=== PATIENT | male | born 1965 | race Caucasian/White ===

== ENCOUNTER 2023-11-08 14:25 | Emergency (ER) | payer MEDICARE, MEDICAID, SELFPAY ==
[2023-11-08 14:28] VITALS: BP 152/90; PULSE 98; O2SAT 98
[2023-11-08 14:31] VITALS: BP 139/83; PULSE 100; RESP 19; TEMP 36.9; O2SAT 98; BMI 25.0
--- NOTE | 2023-11-08 14:35 | ED.GENADULT ---
HPI - General Adult General Chief complaint: Upper Respiratory Symptoms Stated complaint: ?COVID,STANLEY,FEVER,BODYACHES PER EMS (LANG:TONGAN) Time Seen by Provider: 11/08/23 15:29 Source: patient, family (patient's sister), EMS and occupational health coordinator (patient requested to have his sister interpret for him. Patient was offered an [facility] [place] occupational health coordinator and declined.) Mode of arrival: EMS Limitations: language barrier (Patient requested to have his sister interpret for him. Patient was offered an [facility] [place] occupational health coordinator and declined.) History of Present Illness ED Provider: Ashley Louis PA-C HPI narrative: 58-year-old male presents for evaluation of fevers and congestion with facial pain x10 days. Max fever at home was 102F. Congestion has been worsening. Also endorses productive cough of yellowish phlegm. Was taking over the counter cold medicine for a few days, then for the last 3 days has been taking old amoxicillin, per EMS. Patient was recently in [place], denies sick contacts. MD complaint: Sinus infection Onset (ago): day(s) (10) Location: face Relieving factors: none Exacerbating factors: none Associated symptoms: cough, diaphoresis, fever/chills, headaches and malaise Treatments prior to arrival: other ( amoxicillin) Related Data Previous Rx's ?Medication ?Instructions ?Recorded doxycycline hyclate 100 mg tablet 100 mg PO BID 7 days #14 tabs 11/08/23 Allergies Allergy/AdvReac Type Severity Reaction Status Date / Time No Known Allergies Allergy Verified 11/08/23 14:43 Review of Systems Constitutional: Constitutional: Reports no additional constitutional complaints, Reports chills, Reports fever(s) and Reports headache(s) Eyes: Eyes: Reports no additional eye complaints, Denies blurry vision, Denies change in vision, Denies diplopia, Denies eye discharge, Denies loss of vision and Denies eye pain ENT: Denies dizziness, Reports headache(s) and Reports nasal congestion Cardiovascular: Cardiovascular: Reports no additional cardiovascular complaints, Denies chest pain, Denies lightheadedness, Denies Loss of Consciousness and Denies dyspnea Respiratory: Respiratory: Reports no additional respiratory complaints, Reports cough, Reports excessive phlegm production and Denies dyspnea Gastrointestinal: Gastrointestinal: Reports no additional gastrointestinal complaints, Denies abdominal pain, Denies melena, Denies hematochezia, Denies change in bowel habits and Denies change in stool character Genitourinary: Genitourinary: Reports no additional male genitourinary complaints, Denies hematuria, Denies oliguria, Denies difficulty urinating, Denies dysuria, Denies urinary frequency, Denies urinary hesitancy, Denies urinary incontinence and Denies urinary urgency Musculoskeletal: Musculoskeletal: Reports no additional musculoskeletal complaints, Denies numbness and Denies tingling Neurologic: Denies dizziness, Reports headache(s), Denies loss of vision, Denies numbness and Denies tingling Psychiatric: Psychiatric: Reports no additional psychiatric complaints Endocrine: Endocrine: Reports no additional endocrine complaints Hematologic/Lymphatic: Hematologic/Lymphatic: Reports no additional hematologic/lymphatic complaints Allergic/Immunologic: Allergic/Immunologic: Reports no additional allergic/immunologic complaints PMFSH Past Medical History Attestation statement: The following information was validated with the patient. (patient's sister validated all information provided) Source: old records reviewed, obtained from family (patient's sister provided additional history and confirmed the history provided by the patient.) and nursing notes reviewed Social History Social History Advance Directives: No Advance Directives Information Provided: No Do you have a plan to hurt others: No Plan Physical Exam ED Vital Signs: Vital Signs - 24 hr 11/08/23 14:31 11/08/23 16:26 Temperature 98.4 F 98.4 F Pulse Rate 100 100 Respiratory Rate 19 19 Blood Pressure 139/83 139/83 Pulse Oximetry 98 98 Oxygen Delivery Method Room Air Room Air BMI result Body Mass Index 25.0 Const General: cooperative, no acute distress, alert, awake and tired appearing Nutritional Appearance: well nourished Orientation/consciousness: patient oriented x3 Limitations: no limitations HENMT Head: Yes normal to inspection and Yes atraumatic Ears: hearing grossly normal bilaterally and external ears normal General nose exam: Normal external nose present, no nasal discharge noted and no epistaxis Face and sinus: Yes normal facial exam, No abrasion, No laceration and Yes sinus tenderness Mouth: Normal oral and palatal mucosa present, no drooling and no muffled voice Eyes General: appearance normal, both eyes and all related structures Periorbital: periorbital findings normal Eyelids: Yes eyelids normal Conjunctivae: conjunctivae normal Pupils: Equal, round and reactive pupils present EOM: EOMs intact bilaterally Neck Neck: Yes normal visual inspection, Yes full ROM and Yes no lymphadenopathy Chest Chest palpation & inspection: normal inspection of the chest Resp Effort & Inspection: normal respiratory effort, able to speak in complete sentences and Actively coughing Auscultation: clear to auscultation bilaterally, no crackles, no rales, no rhonchi and no wheezes Cardio Rate: regular rate Rhythm: regular rhythm Heart sounds: no click, no gallops, no murmurs and no rubs GI Inspection: Yes normal to inspection Neuro General: patient oriented x3 and moves all extremities Cranial nerves: Yes Equal, round and reactive pupils present Cognition (Neuro): normal cognition Motor exam (neuro): 5/5 motor strength present throughout Sensory Exam: Normal double simultaneous stimulation for sensation Coordination: [id number] test normal Extrem General: Yes normal to inspection, Yes full ROM and Yes capillary refill normal Psych Appearance: grossly normal Mental Status: mental status grossly normal Affect: normal affect Attitude: cooperative Thought process: Normal thought process present Thought content: Normal thought content present Insight: Good insight present (Psych) Course Course Course Narrative: This is a Rapid Medical Examination (RME) performed by Aditi Ochoa PA-C in triage. Full HPI, ROS, assessment and treatment plan per primary provider in the Main ED. 58 yo Georgian speaking male here for eval of flu-like symptoms x10 days. symptoms began with sore throat while in [place]. Upon returning from [place] 10 days ago, he began experiencing cough, myaglais, headache, and fevers. TMAX 102F at home. with same symptoms. using saline nasal wash at home. admits to taking antibiotics at home given by . denies SOB, calf pain, chest pain. ill appearing. congested. lungs cta. Plan: viral, strep swabs Medical Decision Making Medical Decision Making MDM Narrative: Patient is a 58 year old assigned male at with no reported medical history presenting to the emergency department today with facial pain, headache, and nasal congestion. Patient's physical exam was unremarkable. Patient's COVID-19, influenza, and RSV tests were negative. I explained my physical exam findings as well as all test results to the patient and the patient's sister. I answered all questions asked by the patient and the patient's sister. I stressed the importance of the patient taking his medication as directed (either prescribed or as the over the counter packaging recommends). I stressed the importance of the patient following up with his primary care provider. I stressed the importance of the patient returning to the emergency department immediately if his symptoms were to worsen or if he were to develop any dizziness, shortness of breath, difficulty breathing, chest pain, blurry vision, loss of vision, nausea, vomiting, abdominal pain, fever, chills, back pain, or any other complaints. Patient and the patient's sister verbalized agreement and understanding with this treatment plan and discharge. Differential Diagnosis Differential Diagnoses: The differential diagnosis associated with the presentation includes COVID-19 Influenza RSV unspecified viral URI Sinusitis Admission/Observation Consideration of admission/observation: Escalation of care including admission/observation considered Patient would have been admitted to the hospital had his work up had any findings where hospital admission was appropriate and his clinical presentation warranted hospital admission. Lab Data [facility] Lab Attestation statement: I reviewed the patient's lab results. My interpretation of these results are in the [facility] Rationale portion of this note. Labs: Lab Results 11/08/23 Range/Units 14:51 Influenza Type A (PCR) NEGATIVE (Negative) Influenza Type B (PCR) NEGATIVE (Negative) RSV RNA Qual (PCR) NEGATIVE (Negative) SARS-CoV-2 RNA (RT-PCR) NEGATIVE (Negative) S. pyogenes GrpA GENEVIEVE Negative (Negative) Independent Historian Clinical information obtained from an independent historian. History obtained from or confirmed by: EMS (EMS provided additional history and confirmed the history provided by the patient.) and Other (patient's sister provided additional history and confirmed the history provided by the patient) Tests considered The following testing was considered but not selected: I considered obtaining a chest x-ray however, the patient's current clinical presentation is most consistent with sinusitis and had his chest x-ray showed a pneumonia, he is already being started on appropriate treatment. I discussed this with the patient and the patient's sister who both verbalized agreement and understanding. Prescription Management I considered prescription management with: Antibiotic (Patient prescribed an antibiotic for sinusitis.) Discharge Plan Discharge Clinical Impression: Sinusitis Patient Disposition: Home, Self-Care Instructions: Sinusitis (ED) Additional Instructions: While you are on this antibiotic, stay OUT of the sun without appropriate sunscreen applied. Do NOT take this medication with dairy / milk. Take your antibiotic as prescribed. Follow up with your primary care provider. Return to the emergency department immediately if your symptoms worsen or if you develop any dizziness, shortness of breath, difficulty breathing, chest pain, blurry vision, loss of vision, nausea, vomiting, abdominal pain, fever, chills, back pain, or any other complaints. Prescriptions: New doxycycline hyclate 100 mg tablet 100 mg PO BID 7 Days Qty: 14 0RF Referrals: [facility] Family Medicine [Provider Group] (Call to establish and follow up with a primary care provider. If you already have a primary care provider, please follow up with them.) [facility] Primary Care[facility] [Provider Group] [facility] Primary CareKaren [Provider Group] Stand Alone Forms: Work/School Release Interventions: ED Discharge Assessment Last Done: 11/08/23 16:26 Discharge Date/Time: 11/08/23 16:27 Print Language: Georgian
[2023-11-08 15:05] LABS: IDNOW Serial# 58CA691E; Strep A Nucleic Acid Negative (Negative)
[2023-11-08 15:41] LABS: Influenza A PCR NEGATIVE (Negative); Influenza B PCR NEGATIVE (Negative); Resp Syncy Virus RNA Qual PCR NEGATIVE (Negative); SARS COV2 PCR INHOUSE NEGATIVE (Negative)
[2023-11-08 16:26] VITALS: BP 139/83; PULSE 100; RESP 19; TEMP 36.9; O2SAT 98
== END 2023-11-08 16:27 | disposition home or self-care (01) ==
PROVIDERS: Physician Assistant Medical; Emergency Provider Emergency Medicine
DX: J32.9 Chronic sinusitis, unspecified (principal); R05.9 Cough, unspecified; R50.9 Fever, unspecified; J02.9 Acute pharyngitis, unspecified; Z03.818 Encounter for observation for suspected exposure to other biological agents ruled out
CPT/HCPCS: 0241U; 87651; 99282; 99283

== ENCOUNTER → 2024-01-10 09:27 | Outpatient (REF) | payer MEDICARE, MEDICAID, SELFPAY | LOC: HO.CARD 09:27 | PROVIDERS: PCP Physician Assistant Medical; Visit Provider Physician Assistant Medical | DX: R00.0 Tachycardia, unspecified (principal); R00.2 Palpitations | CPT/HCPCS: 93225 ==

== ENCOUNTER → 2024-01-23 08:00 | Outpatient (REF) | payer MEDICARE, MEDICAID, SELFPAY ==
--- NOTE | 2024-01-23 08:05 | HM_ITS ---
* Total monitoring time 2 days. * Underlying rhythm is sinus with an average rate of 82/Min. * Rare supraventricular and ventricular ectopy. * Episode of narrow complex tachycardia at 123/Min, possibly sinus tachycardia. * No significant pauses or AV blocks. * No patient markers or diary events. MTDD
== END ==
LOC: HO.CARD 08:00
PROVIDERS: PCP Physician Assistant Medical; Visit Provider Physician Assistant Medical
DX: R00.2 Palpitations (principal); R00.0 Tachycardia, unspecified
CPT/HCPCS: 93225

== ENCOUNTER → 2024-01-23 08:05 | Outpatient (BNV) | payer MEDICARE, MEDICAID, SELFPAY | PROVIDERS: PCP Physician Assistant Medical; Visit Provider Internal Medicine | DX: R00.0 Tachycardia, unspecified (principal) | CPT/HCPCS: 93227 ==

== ENCOUNTER 2024-06-20 14:32 | Emergency (ER) | payer MEDICARE, MEDICAID, SELFPAY ==
--- NOTE | ~2024-06-20 | XR_ITS ---
EXAMINATION: XR HAND 3 OR MORE VIEWS LEFT HISTORY: trauma COMPARISON: There are no prior studies available for comparison. FINDINGS: Three views of the left hand are submitted. Osseous mineralization is normal. There is a minimally displaced fracture of the radial styloid. In addition, there is a linear osseous density at the dorsum of the wrist compatible with a triquetral fracture. No additional fractures seen. There is no dislocation. The joint spaces are preserved. There is soft tissue swelling at the fracture sites. XR/XR hand LT min 3V IMPRESSION: Minimally displaced fracture of the radial styloid with an additional triquetral fracture. Electronically signed by: Mahesh Lugo MD 06/20/2024 03:33 PM EST
--- NOTE | 2024-06-20 14:41 | ED.WOUNDLAC ---
HPI - Wound/Laceration General Chief Complaint: Extremity Injury, Upper Stated Complaint: l hand laceration Time Seen by Provider: 06/20/24 16:05 Source: patient, family (son acting as aerial photograph interpreter) and RN notes reviewed Mode of arrival: ambulatory Limitations: language barrier History of Present Illness ED Provider: Em HPI narrative: 59-year-old male with past medical history significant for DVT on Eliquis presents for evaluation of a left hand/wrist laceration. 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 A tourniquet was applied in the community that was removed on arrival to the ED The patient reports that his last tetanus shot was over 10 years ago No other complaints or concerns at this time Related Data Previous Rx's ?Medication ?Instructions ?Recorded doxycycline hyclate 100 mg tablet 100 mg PO BID 7 days #14 tabs 11/08/23 cephalexin 500 mg capsule 500 mg PO TID #15 caps 06/20/24 Allergies Allergy/AdvReac Type Severity Reaction Status Date / Time No Known Allergies Allergy Verified 06/20/24 14:44 Review of Systems Musculoskeletal: Musculoskeletal: Reports arthralgias, Reports joint swelling and Denies limited range of motion Integumentary/Breasts: Skin/Breast: Reports wounds PMFSH Social History Social History Smoked in Last 30 Days: No Use of substances other than those prescribed or required for medical reasons: No Advance Directives: No Advance Directives Information Provided: No Do you have a plan to hurt others: No Plan Physical Exam Vital Signs: Vital Signs: Last Vital Signs Temp 96.3 F L 06/20/24 14:47 Pulse 89 06/20/24 14:47 Resp 16 06/20/24 14:47 BP 160/88 H 06/20/24 14:47 Pulse Ox 97 06/20/24 14:47 O2 Del Method Room Air 06/20/24 14:47 BMI result Body Mass Index 25.0 Const: General: healthy appearing, comfortable, no acute distress, alert and awake Nutritional Appearance: well nourished Orientation/consciousness: patient oriented x3 HEENT: Head: Yes normocephalic and Yes atraumatic Eyes: Eyelids: Yes eyelids normal Conjunctivae: conjunctivae normal Sclerae: sclerae normal Corneas: corneas normal Pupils: Equal, round and reactive pupils present EOM: EOMs intact bilaterally Neck: Neck: Yes full ROM Resp: Effort & Inspection: normal respiratory effort, able to speak in complete sentences and not labored Cardio: Rate: regular rate Rhythm: regular rhythm GI: Inspection: No distended Palpation (GI): Soft to palpation, not firm, nontender, no guarding and not rigid Skin: Other: The patient has an approximately 4 cm curvilinear full-thickness laceration to the dorsal surface of the left hand/wrist. Bleeding is controlled General skin exam: elasticity normal Neuro: General: patient oriented x3 Cranial nerves: Yes Equal, round and reactive pupils present and Yes Bilaterally intact EOM present Cognition (Neuro): normal cognition Extrem: Other: The patient has good range of motion with flexion-extension of all digits of the left hand including opposition of the thumb. Distal sensation and capillary refill is intact Course Course Course Narrative: This is a rapid medical exam performed by Eleonora Linares PA-C. 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 Wound over the dorsum of the left hand, sensation intact, not currently bleeding, able to flex and extend from all digits. We will order an x-ray, screening labs, updating tetanus. Patient is stable and can return to the waiting room pending his full medical assessment Reevaluation(s) Reevaluation #1: See procedure note for wound repair and splinting. Wound repair was performed by Sol Prieto under my direct supervision Time: 17:40 Medications Administered Discontinued Medications Generic Name Dose Route Start Last Admin Trade Name Freq PRN Reason Stop Dose Admin Diphtheria/Tetanus/Acell Pertussis 0.5 ml 06/20/24 14:37 06/20/24 16:46 Diphth,Pertus(Acell),Tet Adult 0.5 Ml Syringe IM 06/20/24 14:38 Not Given .ONCE ONE Lidocaine/Epinephrine 10 ml 06/20/24 16:45 06/20/24 17:18 Lidocaine Hcl 1%/Epi 1:100,000 10 Ml Vial INFILTRATI 06/20/24 16:46 10 ml ONCE ONE Administration Medical Decision Making Medical Decision Making MDM Narrative: 59-year-old male presents for evaluation of a left hand injury/laceration. His hand was caught in his digital marketing intern. X-ray shows fractures to the radial styloid as well as the triquetrum. The laceration appears to be well controlled, there does not appear to be any tendon injury or vascular compromise. He has good sensation, capillary refill and range of motion to all digits. Given the open fracture I discussed with orthopedics, Gus Busch. He recommends copious irrigation, loose closure, volar splint, antibiotics and close follow-up in the orthopedic office. He also recommends making sure the patient is up-to-date on the patient's tetanus. I had already discussed this with the patient. He informed me that his last tetanus was about 10 years ago or more though he still declines a tetanus booster. Given that this was on an older snowboard machine and there is a high possibility of rest, I strongly encouraged the patient to reconsider and he still declines a tetanus. Differential Diagnosis Differential Diagnoses: The differential diagnosis associated with the presentation includes Laceration Open fracture Contusion Tendon injury Consult Healthcare Provider Management of the patient was discussed with: Die Casting Machine Maintainer (Discussed with orthopedics, Gus Busch) Recommendations as above Lab Data 06/20/24 14:57 06/20/24 14:57 Labs: Lab Results 06/20/24 Range/Units 14:57 WBC 6.1 (4.8-10.8) X10*3/uL RBC 4.71 (4.60-5.80) X10*6/uL Hgb 13.1 L (14.0-18.0) g/dl Hct 37.7 L (42.0-52.0) % MCV 80.0 (80.0-98.0) fL MCH 27.8 (27.0-33.0) pg MCHC 34.7 (31.0-36.0) g/dl RDW 13.3 (11.0-16.0) % Plt Count 227 (160-400) X10*3/uL MPV 8.5 L (9.4-12.4) fL Immature Gran % (Auto) 0.3 (0.0-0.4) % Neut % (Auto) 58.9 (45-73) % Lymph % (Auto) 33.7 (20-40) % Sunflower % (Auto) 6.1 (2-11) % Eos % (Auto) 0.7 (0-4) % Baso % (Auto) 0.3 (0-2) % Lymph # (Auto) 2.1 (1.2-4.9) X10*3/uL Sunflower # (Auto) 0.4 (0.1-1.2) X10*3/uL Eos # (Auto) 0.0 (0.0-0.4) X10*3/uL Baso # (Auto) 0.0 (0.0-0.2) X10*3/uL Abs Immat Gran (auto) 0.02 (0.00-0.03) X10*3/uL Absolute Neuts (auto) 3.6 (2.0-8.3) x10*3/uL Absolute Nucleated RBC 0.000 (0.0-0.012) X10*3/uL Nucleated RBC % (auto) 0.0 (0.0-0.2) /100WBC PT 13.6 H (10.9-12.4) SEC INR 1.2 H (0.9-1.1) Sodium 140 (135-145) mmol/L Potassium 3.7 (3.3-5.1) mmol/L Chloride 109 H (96-108) mmol/L Carbon Dioxide 21 L (22-29) mmol/L Anion Gap 14 (12-20) BUN 21 H (9-16) mg/dL Creatinine 1.27 (0.5-1.4) mg/dL Estim Creat Clear Calc 73.0 Estimated GFR 58 Random Glucose 154 H (60-115) mg/dL Calcium 8.7 (8.4-10.2) mg/dL Independent Interpretation I performed an independent interpretation of an: Plain X-Ray Interpretation: FINDINGS: Three views of the left hand are submitted. Osseous mineralization is normal. There is a minimally displaced fracture of the radial styloid. In addition, there is a linear osseous density at the dorsum of the wrist compatible with a triquetral fracture. No additional fractures seen. There is no dislocation. The joint spaces are preserved. There is soft tissue swelling at the fracture sites. XR/XR hand LT min 3V IMPRESSION: Minimally displaced fracture of the radial styloid with an additional triquetral fracture. Electronically signed by: Mahesh Lugo MD 06/20/2024 03:33 PM [facility] Procedures Laceration Laceration 1: Site: upper extremity Side (If applicable): left Size (cm): 4 Description: linear Depth: simple, single layer Local Anesthetic: lidocaine 1% and with epi Amount of anesthesia used (mL): 5 Pre-repair: wound explored, irrigated extensively and deep structures intact Skin layer closed with: nylon Size (cm): 4-0 Number of sutures: 6 Technique: simple, interrupted Orthopedic Splinting/Casting Injury #1: Side: left Upper Extremity Injury Location: wrist Upper Extremity Immobilizer: volar splint Additional Comments: Postprocedure neurovascular status remains intact Discharge Plan Discharge Clinical Impression: Open fracture of bone of left wrist Patient Disposition: Home, Self-Care Instructions: Laceration (ED), Wrist Fracture in Adults (ED) Additional Instructions: You have 6 sutures/stitches in your left hand/wrist These can be removed in 10-14 days, but will probably be done by the orthopedic office when you follow-up with them Call the number provided to follow-up with orthopedics, call tomorrow to schedule an appointment. They will likely see you early next week Your tetanus was updated today Take the antibiotics as prescribed Return for new or worsening symptoms, especially develop significant pain, swelling, color change to your fingers, redness or fevers Prescriptions: New cephalexin 500 mg capsule 500 mg PO TID Qty: 15 0RF No Action doxycycline hyclate 100 mg tablet 100 mg PO BID 7 Days Qty: 14 0RF Referrals: Radha Torres MD [Physician] - (left hand laceration with fractures) Print Language: Barbadian
[2024-06-20 14:42] VITALS: BP 160/88; PULSE 89; RESP 16; TEMP 35.7; O2SAT 97; BMI 25.0
[2024-06-20 14:47] VITALS: BP 160/88; PULSE 89; RESP 16; TEMP 35.7; O2SAT 97
[2024-06-20 15:05] LABS: MANUAL DIFF FLAG NO
--- OUTSIDE RECORDS SUMMARY | 2024-06-20 15:08 | XMS_ITS | Clinical Summary ---
Author Organization [facility] Address [address] [place] [address] Care Team Providers Care Conference And Event Organiser Name Role Phone Sabra Payton PA-C Primary Care Provider [phone] Allergies No known active allergies Medications Medication Sig Dispensed Refills Start Date End Date Status atenolol (TENORMIN) tablet 50 mg Take 1 tablet (50 mg total) by mouth daily. 0 Active apixaban (ELIQUIS) 5 MG TABS tablet Take 1 tablet (5 mg total) by mouth every 12 (twelve) hours. 60 tablet 11 04/28/2020 Active Active Problems Problem Noted Date Diagnosed Date Central retinal vein occlusion of left eye 04/28 Primary hypercoagulable state 04/28/2020 Pulmonary embolus 04/28/2020 Weight loss 04/28/2020 Stage 3a chronic kidney disease 04/28/2020 Essential hypertension 04/28/2020 Social History Tobacco Use Types Packs/Day Years Used Date Smoking Tobacco: Never Smokeless Tobacco: Never Alcohol Use Standard Drinks/Week Comments No 0 (1 standard drink = 0.6 oz pur e alcohol) Sex and Gender Information Value Date Recorded Sex Assigned at Not on file Gender Identity Not on file Sexual Orientation Not on file Job Start Date Occupation Industry Not on file Not on file Not on file Last Filed Vital Signs Vital Sign Reading Time Taken Comments Blood Pressure 120/81 04/26/2022 9:02 AM EST Pulse 81 04/26/2022 9:02 AM EST Temperature 36.5 ??C (97.7 ??F) 04/26/2022 9:02 AM ES T Respiratory Rate - - Oxygen Saturation 99% 04/26/2022 9:02 AM EST Inhaled Oxygen Concentration - - Weight 98 kg (216 lb) 04/26/2022 9:02 AM EST Height 190.5 cm (6' 3 ) 04/26/2022 9:02 AM EST Body Mass Index 27 04/26/2022 9:02 AM EST Plan of Treatment Health Maintenance Due Date Last Done Comments Hepatitis C Screening 1965 COVID-19 Vaccine (#1) 1963 Depression Screening 1975 Preventative Health Evaluation 1981 DTap / Tdap / Td (1 - Tdap) 1982 Colon Cancer Screening (Colonoscopy) 01/07/2008 Shingrix-Zoster Vaccine (1 of 2) 2013 Influenza Vaccine (#1) 2024 RSV Adult > 60+ Yrs or Pregn ant (1 - 1-dose 75+ series) 2038 Hepatitis B Vaccines Aged Out No long er eligible based on patient's age to complete this topic Pneumococcal Vaccine Aged Out No long er eligible based on patient's age to complete this topic RSV Ped < 20 months Aged Out No longe r eligible based on patient's age to complete this topic Care Teams Conference And Event Organiser Relationship Specialty Start Date End Date Sabra Payton PA-C [address] [facility] [address] [place] [address] PCP - General Family Medicine 05/25/18
[2024-06-20 15:10] LABS: Basophils Percent Auto 0.3 % (0-2); Eosinophils Percent Auto 0.7 % (0-4); Hematocrit 37.7 % (42.0-52.0); Hemoglobin 13.1 g/dl (14.0-18.0); Imm Gran Abs Auto 0.02 X10*3/uL (0.00-0.03); Imm Gran Pct Auto 0.3 % (0.0-0.4); Lymphocytes Absolute Auto 2.1 X10*3/uL (1.2-4.9); Lymphocytes Percent Auto 33.7 % (20-40); Mean Corpuscular HGB Conc 34.7 g/dl (31.0-36.0); Mean Corpuscular Hemoglobin 27.8 pg (27.0-33.0); Mean Platelet Volume 8.5 fL (9.4-12.4); Monocytes Absolute Auto 0.4 X10*3/uL (0.1-1.2); Monocytes Percent Auto 6.1 % (2-11); Neutrophils Absolute Auto 3.6 x10*3/uL (2.0-8.3); Neutrophils Percent Auto 58.9 % (45-73); Platelet Count 227 X10*3/uL (160-400); Red Blood Count 4.71 X10*6/uL (4.60-5.80); Red Cell Distribution Width 13.3 % (11.0-16.0); White Blood Count 6.1 X10*3/uL (4.8-10.8)
[2024-06-20 15:17] LABS: INTERNATIONAL NORM RATIO 1.2 (0.9-1.1); Prothrombin Time 13.6 SEC (10.9-12.4)
[2024-06-20 15:18] LABS: Anion Gap 14 (12-20); Blood Urea Nitrogen 21 mg/dL (9-16); Calcium 8.7 mg/dL (8.4-10.2); Carbon Dioxide 21 mmol/L (22-29); Chloride 109 mmol/L (96-108); Estimated Glomerular Filt Rate 58; Glucose Random 154 mg/dL (60-115); Potassium 3.7 mmol/L (3.3-5.1); Sodium 140 mmol/L (135-145)
--- NOTE | 2024-06-20 16:46 | PC.NURSE ---
pt educated on importance of tetanus vaccine by both Arabella DONNELLY, and JERROD Hilliard, and is electing to decline at this time.
[2024-06-20] MEDS: Lidocaine HCl 1%/Epi 1:100,000 10 ML VIAL INFILTRATI (17:18)
[2024-06-20 17:46] VITALS: BP 124/89; PULSE 82; RESP 16; TEMP 36.6; O2SAT 96
[2024-06-20] MEDS: Diphth,Pertus(ACell),Tet Adult 0.5 ML SYRINGE IM (17:46)
[2024-06-20 17:54] VITALS: BP 124/89; PULSE 82; RESP 16; TEMP 36.6; O2SAT 96
== END 2024-06-20 17:55 | disposition home or self-care (01) ==
PROVIDERS: Physician Assistant Medical; Emergency Provider Emergency Medicine; PCP Physician Assistant Medical
DX: S62.102A Fracture of unspecified carpal bone, left wrist, initial encounter for closed fracture (principal); S61.512A Laceration without foreign body of left wrist, initial encounter; M79.642 Pain in left hand; W29.8XXA Contact with other powered hand tools and household machinery, initial encounter; Y93.9 Activity, unspecified; Y92.9 Unspecified place or not applicable; W26.9XXA Contact with unspecified sharp object(s), initial encounter; Y99.8 Other external cause status; Y92.007 Garden or yard of unspecified non-institutional (private) residence as the place of occurrence of the external cause; Z23 Encounter for immunization; Z86.718 Personal history of other venous thrombosis and embolism; Z79.01 Long term (current) use of anticoagulants
CPT/HCPCS: 12002; 29125; 36415; 73130; 80048; 85025; 85610; 90471; 90715; 99284; J2004

== ENCOUNTER → 2024-06-20 14:36 | Outpatient (BNV) | payer MEDICARE, MEDICAID, SELFPAY | PROVIDERS: PCP Physician Assistant Medical; Visit Provider Radiology Diagnostic Radiology | DX: S52.512A Displaced fracture of left radial styloid process, initial encounter for closed fracture (principal) | CPT/HCPCS: 73130 ==

== ENCOUNTER 2024-06-26 08:05 | Outpatient (REF) | payer MEDICARE, MEDICAID, SELFPAY ==
--- NOTE | ~2024-06-26 | XR_ITS ---
EXAMINATION: XR WRIST 3 OR MORE VIEWS LEFT HISTORY: M25.532 - Pain in left wrist COMPARISON: Comparison is made with the prior examination dated 06/20/2024. FINDINGS: Three views of the left wrist are submitted. Osseous mineralization is normal. Again seen is a minimally displaced fracture of the radial styloid without change. A fracture of the triquetrum is also unchanged. The joint spaces are preserved. The soft tissues are unremarkable. XR/XR wrist LT min 3V IMPRESSION: Minimally displaced fracture of the radial styloid and fracture of the triquetrum without change. Electronically signed by: Mahesh Lugo MD 06/26/2024 11:59 AM EST
--- OUTSIDE RECORDS SUMMARY | 2024-06-26 08:12 | XMS_ITS | Clinical Summary ---
Author Organization [facility] Address [address] [place] [address] Care Team Providers Care Podiatric Assistant Name Role Phone Sabra Payton PA-C Primary Care Provider +1 [phone] Allergies No known active allergies Medications Medication [...] age to complete this topic Care Teams Podiatric Assistant Relationship Specialty Start Date End Date Sabra Payton PA-C [address] [facility] [address] [place] [address] PCP - General Family Medicine 05/25/18
== END 2024-06-26 08:06 | disposition home or self-care (01) ==
LOC: HO.HOSX 08:05
DX: M25.532 Pain in left wrist (principal); S52.512A Displaced fracture of left radial styloid process, initial encounter for closed fracture; S62.112A Displaced fracture of triquetrum [cuneiform] bone, left wrist, initial encounter for closed fracture
CPT/HCPCS: 73110; 99202

== ENCOUNTER 2024-06-26 11:03 | Outpatient (AMB) | payer MEDICARE, MEDICAID, SELFPAY ==
--- NOTE | 2024-06-26 11:09 | MHC.OFFVIS ---
Vital Signs 06/26/24 11:28 Height 6 ft 3 in Weight 200 lb BMI 25.0 Handedness Right Intake Visit Reasons: FC- ED f/u Left wrist fx /lac DOI 06/20/24 Intake Note: Jeannette is a 59 year old right hand dominant male who presents today for an ED follow up s/p left wrist fracture/laceration, DOI 06/20/24. 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 Patient states that he is having little to no pain. He hasnt taken anything due to no haivng pain. Denies numbness and tingling? Reports/Denies finger locking? Reports/Denies any prior injuries or surgeries to the left hand. IMPRESSION: Minimally displaced fracture of the radial styloid with an additional triquetral fracture. Allergies No Known Allergies Allergy (Verified 06/26/24 11:27) HPI HPI FC- ED f/u Left wrist fx /lac DOI 06/20/24: Details: Jeannette is a 59 year old right hand dominant male who presents today for an ED follow up s/p left wrist fracture/laceration, DOI 06/20/24. 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 Patient states that he is having little to no pain. He hasnt taken anything due to no haivng pain. Denies numbness and tingling? Reports/Denies finger locking? Reports/Denies any prior injuries or surgeries to the left hand. IMPRESSION: Minimally displaced fracture of the radial styloid with an additional triquetral fracture. [facility] Social History (Updated 06/26/24 @ 11:28 by Lluvia Arce) Alcohol intake: never Patient Tobacco Use Status: Never used Tobacco Current occupational status: disabled Current occupation: right hand dominant Review of Systems Const All systems reviewed & are unremarkable except as noted in HPI and below Physical Exam Vital Signs: BMI result Body Mass Index 25.0 Extrem Other: Patient is alert, oriented, and in no acute distress. Neuro: Normal sensation of the tips of all digits of the left hand at this time Vascular: Cap refill brisk Pain: Patient reports minimal tenderness to palpation about the radial styloid and the dorsal and slightly ulnar aspect of the left wrist ROM: Patient was able to make a closed fist and extend all digits of the left hand fully and without difficulty Skin: Well approximated laceration noted on the dorsal aspect of the left hand over the 1st and 2nd metacarpals No evidence of infection Sutures in place No lacerations or abrasions. General: No ecchymosis, erythema, or evidence of infection. Psych: Appears grossly normal Affect normal Attitude cooperative Office Procedures AMB Fracture Care Fracture Billing Code: Fracture Billing Code Results Reviewed Results Reviewed: X-rays obtained in the office today and independently reviewed by me, Gus Busch PA-C, demonstrate minimally displaced fractures of the left ulnar styloid and left triquetrum. Assessment & Plan Assessment & Plan (1) Fracture of styloid process of left radius: Code(s): S52.512A - Displaced fracture of left radial styloid process, initial encounter for closed fracture Category: Medical (2) Fracture of triquetrum of left wrist: Code(s): S62.112A - Displaced fracture of triquetrum [cuneiform] bone, left wrist, initial encounter for closed fracture Category: Medical Plan 1. Radial styloid fracture, left 2. Triquetrum fracture, left Patient is educated about this condition Patient is educated about the treatment options available Patient was seen and evaluated with Dr. Torres, and a collaborative treatment plan was formed: At this time, patient was given a Velcro wrist splint to be worn like a cast except for bathing Patient will wash the incision site with soap and water in the sink of the shower, but will avoid submerging the laceration Patient was amenable to this plan Patient was given a strict 2 lb weight limit in the right hand until follow-up Patient will follow up in 1 week for suture removal Orders: Orders XR wrist LT min 3V Today M25.532 - Pain in left wrist Medications: Discontinued cephalexin Discontinued Reason: Patient no longer taking 500 mg PO TID 15 caps 0RF doxycycline hyclate Discontinued Reason: Patient no longer taking 100 mg PO BID 7 days 14 tabs 0RF Coding Level of Care Code New Pt Level 3 (77570) Diagnoses Fracture of styloid process of left radius S52.512A Fracture of triquetrum of left wrist S62.112A CPT Codes Fracture Care - Fracture Billing Code: Fracture Billing Code ([id number])
[2024-06-26 11:28] VITALS: BMI 25.0
--- OUTSIDE RECORDS SUMMARY | 2024-06-26 12:54 | XMS_ITS | Clinical Summary ---
Author Organization [facility] Address [address] [place] [address] Care Team Providers Care Chief Scientific Officer Name Role Phone Sabra Payton PA-C Primary Care Provider +1 [phone] Allergies No known active allergies Medications Medication [...] age to complete this topic Care Teams Chief Scientific Officer Relationship Specialty Start Date End Date Sabra Payton PA-C [address] [facility] [address] [place] [address] PCP - General Family Medicine 05/25/18
== END 2024-06-26 12:23 | disposition home or self-care (01) ==
PROVIDERS: PCP Physician Assistant Medical
DX: S52.512A Displaced fracture of left radial styloid process, initial encounter for closed fracture (principal); S62.112A Displaced fracture of triquetrum [cuneiform] bone, left wrist, initial encounter for closed fracture
CPT/HCPCS: 99203

== ENCOUNTER → 2024-06-26 11:10 | Outpatient (BNV) | payer MEDICARE, MEDICAID, SELFPAY | PROVIDERS: Visit Provider Radiology Diagnostic Radiology | DX: M25.532 Pain in left wrist (principal) | CPT/HCPCS: 73110 ==

== ENCOUNTER 2024-07-02 10:44 | Outpatient (AMB) | payer MEDICARE, MEDICAID, SELFPAY ==
--- NOTE | 2024-07-02 10:49 | MHC.OFFVIS ---
Intake Visit Reasons: OV-Left wrist fx /lac DOI 06/20/24-Suture removal Intake Note: Jeannette is a 59 year old right hand dominant male who presents today for a follow up visit of his fracture of styloid process of left radius and laceration, DOI 06/20/24. At last visit on 06/26/2024 patient was given a strict 2 pound weight limit in the right hand until follow-up. Suture removed and steri strips applied. Patient reports that he is doing well, no concerns at this time Allergies No Known Allergies Allergy (Verified 06/26/24 11:27) HPI HPI OV-Left wrist fx /lac DOI 06/20/24-Suture removal: Details: Jeannette is a 59 year old right hand dominant male who presents today for a follow up visit of his fracture of styloid process of left radius and laceration, DOI 06/20/24. At last visit on 06/26/2024 patient was given a strict 2 pound weight limit in the right hand until follow-up. Suture removed and steri strips applied. Patient reports that he is doing well, no concerns at this time [facility] Social History (Updated 06/26/24 @ 11:28 by Lluvia Arce) Alcohol intake: never Patient Tobacco Use Status: Never used Tobacco Current occupational status: disabled Current occupation: right hand dominant Review of Systems Const All systems reviewed & are unremarkable except as noted in HPI and below Physical Exam Extrem Other: Patient is alert, oriented, and in no acute distress. Neuro: Normal sensation of the tips of all digits of the left hand at this time Vascular: Cap refill brisk Pain: Patient reports minimal tenderness to palpation about the radial styloid and the dorsal and slightly ulnar aspect of the left wrist ROM: Patient was able to make a closed fist and extend all digits of the left hand fully and without difficulty Skin: Well approximated laceration noted on the dorsal aspect of the left hand over the 1st and 2nd metacarpals No evidence of infection Sutures in place No lacerations or abrasions. General: No ecchymosis, erythema, or evidence of infection. Psych: Appears grossly normal Affect normal Attitude cooperative Assessment & Plan Assessment & Plan (1) Fracture of styloid process of left radius: Code(s): S52.512A - Displaced fracture of left radial styloid process, initial encounter for closed fracture Category: Medical (2) Fracture of triquetrum of left wrist: Code(s): S62.112A - Displaced fracture of triquetrum [cuneiform] bone, left wrist, initial encounter for closed fracture Category: Medical Plan 1. Radial styloid fracture, left 2. Triquetrum fracture, left Patient is educated about this condition Patient is educated about the treatment options available Patient was seen and evaluated with Dr. Torres, and a collaborative treatment plan was formed: Sutures, Steri-Strips applied At this time, patient was educated to continue wearing Velcro wrist splint like a cast except for bathing Patient will wash the incision site with soap and water in the sink of the shower, but will avoid submerging the laceration Patient was amenable to this plan Patient was given a strict 2 lb weight limit in the right hand until follow-up Patient will follow up in 2 weeks for reassessment, sooner with any acute concerns Coding Level of Care Code Global (46730) Diagnoses Fracture of styloid process of left radius S52.512A Fracture of triquetrum of left wrist S62.112A
--- OUTSIDE RECORDS SUMMARY | 2024-07-02 11:51 | XMS_ITS | Clinical Summary ---
Author Organization [facility] Address [address] [place] [address] Care Team Providers Care Emergency Communications Operator Name Role Phone Sabra Payton PA-C Primary Care Provider +1 [phone] Allergies No known active allergies Medications Medication [...] age to complete this topic Care Teams Emergency Communications Operator Relationship Specialty Start Date End Date Sabra Payton PA-C [address] [facility] [address] [place] [address] PCP - General Family Medicine 05/25/18
== END 2024-07-02 11:10 | disposition home or self-care (01) ==
PROVIDERS: PCP Physician Assistant Medical
DX: S52.512A Displaced fracture of left radial styloid process, initial encounter for closed fracture (principal); S62.112A Displaced fracture of triquetrum [cuneiform] bone, left wrist, initial encounter for closed fracture
CPT/HCPCS: 99213

== ENCOUNTER → 2024-07-02 10:44 | Outpatient (BNVA) | payer MEDICARE, MEDICAID, SELFPAY | PROVIDERS: PCP Physician Assistant Medical | DX: S52.512D Displaced fracture of left radial styloid process, subsequent encounter for closed fracture with routine healing (principal); S62.112D Displaced fracture of triquetrum [cuneiform] bone, left wrist, subsequent encounter for fracture with routine healing; X58.XXXD Exposure to other specified factors, subsequent encounter | CPT/HCPCS: 99212 ==

== ENCOUNTER 2024-07-19 08:21 | Outpatient (REF) | payer MEDICARE, MEDICAID, SELFPAY ==
--- NOTE | ~2024-07-19 | XR_ITS ---
EXAMINATION: XR WRIST, LEFT CLINICAL INFORMATION: M25.532 - Pain in left wrist COMPARISON: None available. TECHNIQUE: PA, lateral, and oblique views of the left wrist. FINDINGS: The bones and soft tissues are normal. No fracture. Alignment is anatomic with normal joint spaces. No erosions or abnormal soft tissue calcifications. XR/XR wrist LT min 3V IMPRESSION: Unremarkable left wrist. Electronically signed by: Joshua Melara MD 07/19/2024 09:35 AM IVY
--- OUTSIDE RECORDS SUMMARY | 2024-07-19 08:46 | XMS_ITS | Clinical Summary ---
Author Organization [facility] Address [address] [place] [address] Care Team Providers Care Foreman/Pile Driving And Erection Name Role Phone Sabra Payton PA-C Primary Care Provider +1 [phone] Allergies No known active allergies Medications Medication [...] age to complete this topic Care Teams Foreman/Pile Driving And Erection Relationship Specialty Start Date End Date Sabra Payton PA-C [address] [facility] [address] [place] [address] PCP - General Family Medicine 05/25/18
== END 2024-07-19 08:22 | disposition home or self-care (01) ==
LOC: HO.HOSX 08:21
DX: M25.532 Pain in left wrist (principal); S52.512A Displaced fracture of left radial styloid process, initial encounter for closed fracture; S62.112A Displaced fracture of triquetrum [cuneiform] bone, left wrist, initial encounter for closed fracture
CPT/HCPCS: 73110; 99212

== ENCOUNTER 2024-07-19 08:40 | Outpatient (AMB) | payer MEDICARE, MEDICAID, SELFPAY ==
[2024-07-19 09:12] VITALS: BMI 25.0
--- NOTE | 2024-07-19 09:12 | A.OFFVIS_ITS ---
Vital Signs 07/19/24 09:12 Height 6 ft 3 in Weight 200 lb BMI 25.0 Intake Visit Reasons: OV-Left wrist fx /lac DOI 06/20/24-w/xray Intake Note: Jeannette is a 59 year old right hand dominant male who presents today for a follow up of his left radial styloid fracture and left triquetrum fracture, DOI 06/20/24. He also has a family member accompanying him via phone. At his last visit on 07/02/2024 patient was given a Velcro wrist splint to wear like a cast except for bathing and to remain on a 2 pound weight limit. Patient reports he is doing very well. Patient denies numbness, tingling, finger locking. He is not taking anything for pain at this time. Dramatic Critic Required: No Allergies No Known Allergies Allergy (Verified 07/19/24 09:13) HPI HPI OV-Left wrist fx /lac DOI 06/20/24-w/xray: Details: Jeannette is a 59 year old right hand dominant male who presents today for a follow up of his left radial styloid fracture and left triquetrum fracture, DOI 06/20/24. He also has a family member accompanying him via phone. At his last visit on 07/02/2024 patient was given a Velcro wrist splint to wear like a cast except for bathing and to remain on a 2 pound weight limit. Patient reports he is doing very well. Patient denies numbness, tingling, finger locking. He is not taking anything for pain at this time. [facility] Social History (Updated 06/26/24 @ 11:28 by Lluvia Arce) Alcohol intake: never Patient Tobacco Use Status: Never used Tobacco Current occupational status: disabled Current occupation: right hand dominant Review of Systems Const All systems reviewed & are unremarkable except as noted in HPI and below Physical Exam Vital Signs: BMI result Body Mass Index 25.0 Extrem Other: Patient is alert, oriented, and in no acute distress. Neuro: Normal sensation of the tips of all digits of the left hand at this time Vascular: Cap refill brisk Pain: Patient reports no tenderness to palpation about the radial styloid and the dorsal and slightly ulnar aspect of the left wrist ROM: Patient was able to make a closed fist and extend all digits of the left hand fully and without difficulty Skin: Well approximated and well healed laceration noted on the dorsal aspect of the left hand over the 1st and 2nd metacarpals No evidence of infection No lacerations or abrasions. General: No ecchymosis, erythema, or evidence of infection. Psych: Appears grossly normal Affect normal Attitude cooperative Results Reviewed Results Reviewed: X-rays obtained in the office today and independently reviewed by me, Gus Busch PA-C, demonstrate minimally displaced fractures of the left ulnar styloid and left triquetrum with evidence of interval bony healing Assessment & Plan Assessment & Plan (1) Fracture of styloid process of left radius: Code(s): S52.512A - Displaced fracture of left radial styloid process, initial encounter for closed fracture Category: Medical (2) Fracture of triquetrum of left wrist: Code(s): S62.112A - Displaced fracture of triquetrum [cuneiform] bone, left wrist, initial encounter for closed fracture Category: Medical Plan 1. Radial styloid fracture, left 2. Triquetrum fracture, left Patient is educated about this condition Patient is educated about the treatment options available At this time, patient was educated to wear the Velcro wrist splint with daytime activities Patient is edicated that he can remove the splint while at rest to work on ROM of the L hand and wrist Patient was given a 5 lb weight limit in the right hand until follow-up Patient will follow up in 4 weeks for reassessment, sooner with any acute concerns Orders: Orders XR wrist LT min 3V Today M25.532 - Pain in left wrist Coding Level of Care Code Est Pt Level 3 (77771) Diagnoses Fracture of styloid process of left radius S52.512A Fracture of triquetrum of left wrist S62.112A
--- OUTSIDE RECORDS SUMMARY | 2024-07-19 09:14 | XMS_ITS | Clinical Summary ---
Author Organization [facility] Address [address] [place] [address] Care Team Providers Care Loom Operator Name Role Phone Sabra Payton PA-C Primary Care Provider +1 [phone] Allergies No known active allergies Medications Medication [...] age to complete this topic Care Teams Loom Operator Relationship Specialty Start Date End Date Sabra Payton PA-C [address] [facility] [address] [place] [address] PCP - General Family Medicine 05/25/18
== END 2024-07-19 09:30 | disposition home or self-care (01) ==
PROVIDERS: PCP Physician Assistant Medical
DX: S52.512A Displaced fracture of left radial styloid process, initial encounter for closed fracture (principal); S62.112A Displaced fracture of triquetrum [cuneiform] bone, left wrist, initial encounter for closed fracture
CPT/HCPCS: 99213

== ENCOUNTER → 2024-07-19 08:48 | Outpatient (BNV) | payer MEDICARE, MEDICAID, SELFPAY | PROVIDERS: Visit Provider Radiology Diagnostic Radiology | DX: M25.532 Pain in left wrist (principal) | CPT/HCPCS: 73110 ==

== ENCOUNTER 2024-08-16 09:26 | Outpatient (AMB) | payer MEDICARE, MEDICAID, SELFPAY ==
--- NOTE | 2024-08-16 09:29 | MHC.OFFVIS ---
Vital Signs 08/16/24 09:30 Height 6 ft 3 in Weight 200 lb BMI 25.0 Handedness Right Intake Visit Reasons: OV-Left wrist fx /lac DOI 06/20/24-w/xray Intake Note: Jeannette is a 59 year old right hand dominant male who presents today for a follow up of his left radial styloid fracture and left triquetrum fracture, DOI 06/20/24. At his last visit on 07/19/24, patient was placed on a velcro wrist brace to be worn during activities. He has not been using his brace as much as he was in the beginning of it being given to him. He has been avoiding heavy lifting in the left hand due to pain. Patient reports his left wrist/hand feels 50% better but it is 50% worse than the other hand. Denies numbness and tingling. He showed me when he attempts to touch his thumb and small finger together his left hand begins to shake. Allergies No Known Allergies Allergy (Verified 08/16/24 09:33) HPI HPI OV-Left wrist fx /lac DOI 06/20/24-w/xray: Details: Jeannette is a 59 year old right hand dominant male who presents today for a follow up of his left radial styloid fracture and left triquetrum fracture, DOI 06/20/24. At his last visit on 07/19/24, patient was placed on a velcro wrist brace to be worn during activities. He has not been using his brace as much as he was in the beginning of it being given to him. He has been avoiding heavy lifting in the left hand due to pain. Patient reports his left wrist/hand feels 50% better but it is 50% worse than the other hand. Denies numbness and tingling. He showed me when he attempts to touch his thumb and small finger together his left hand begins to shake. [facility] Social History Alcohol intake: never Patient Tobacco Use Status: Never used Tobacco Current occupational status: disabled Current occupation: right hand dominant Review of Systems Const All systems reviewed & are unremarkable except as noted in HPI and below Physical Exam Vital Signs: BMI result Body Mass Index 25.0 Extrem Other: Patient is alert, oriented, and in no acute distress. Neuro: Normal sensation of the tips of all digits of the left hand at this time Vascular: Cap refill brisk Pain: Patient reports no tenderness to palpation about the radial styloid and the dorsal and slightly ulnar aspect of the left wrist ROM: Patient was able to make a closed fist and extend all digits of the left hand fully and without difficulty Patient is able to flex the left wrist to approximately 30 degrees and is able to extend the left wrist to approximately 30 degrees, otherwise limited due to pain and stiffness Skin: Well approximated and well healed laceration noted on the dorsal aspect of the left hand over the 1st and 2nd metacarpals No evidence of infection General: No ecchymosis, erythema, or evidence of infection. Psych: Appears grossly normal Affect normal Attitude cooperative Assessment & Plan Assessment & Plan (1) Fracture of triquetrum of left wrist: Code(s): S62.112A - Displaced fracture of triquetrum [cuneiform] bone, left wrist, initial encounter for closed fracture Category: Medical (2) Fracture of styloid process of left radius: Code(s): S52.512A - Displaced fracture of left radial styloid process, initial encounter for closed fracture Category: Medical Plan 1. Radial styloid fracture, left 2. Triquetrum fracture, left Patient is educated about this condition Patient is educated about the treatment options available At this time, patient was educated to wear the Velcro wrist splint with high-risk daytime activities, otherwise removing Patient is edicated that he can remove the splint while at rest to work on ROM of the L hand and wrist Patient was given a 10 lb weight limit for 2 weeks, then a 15 lb weight limit for the following 2 weeks in the R hand Patient was referred to OT to work on range of motion and strengthening of the left wrist Patient will follow up as needed with any acute concerns Orders: Orders OT Evaluation and Treatment Today S52.512A - Displaced fracture of left radial styloid process, initial encounter for closed fracture, S62.112A - Displaced fracture of triquetrum [cuneiform] bone, left wrist, initial encounter for closed fracture Coding Level of Care Code Global (20604) Diagnoses Fracture of triquetrum of left wrist S62.112A Fracture of styloid process of left radius S52.512A
[2024-08-16 09:30] VITALS: BMI 25.0
--- OUTSIDE RECORDS SUMMARY | 2024-08-16 10:18 | XMS_ITS | Clinical Summary ---
Author Organization [facility] Address [address] [place] [address] Care Team Providers Care Battery Assembler Name Role Phone Sabra Payton PA-C Primary Care Provider +1 [phone] Allergies No known active allergies Medications Medication [...] age to complete this topic Care Teams Battery Assembler Relationship Specialty Start Date End Date Sbara Payton PA-C [address] [facility] [address] [place] [address] PCP - General Family Medicine 05/25/18
== END 2024-08-16 09:45 | disposition home or self-care (01) ==
LOC: HO.HOS 09:26
PROVIDERS: PCP Physician Assistant Medical
DX: S62.112A Displaced fracture of triquetrum [cuneiform] bone, left wrist, initial encounter for closed fracture (principal); S52.512A Displaced fracture of left radial styloid process, initial encounter for closed fracture
CPT/HCPCS: 99213

== ENCOUNTER → 2024-08-16 09:26 | Outpatient (BNVA) | payer MEDICARE, MEDICAID, SELFPAY | PROVIDERS: PCP Physician Assistant Medical | DX: S62.112D Displaced fracture of triquetrum [cuneiform] bone, left wrist, subsequent encounter for fracture with routine healing (principal); S52.512D Displaced fracture of left radial styloid process, subsequent encounter for closed fracture with routine healing; X58.XXXD Exposure to other specified factors, subsequent encounter | CPT/HCPCS: 99212 ==

== ENCOUNTER 2024-11-15 05:53 | Emergency (ER) | payer MEDICARE, MEDICAID, SELFPAY ==
--- NOTE | ~2024-11-15 | XR_ITS ---
CLINICAL HISTORY: R O free air in diaphragm 2 view chest x-ray. Comparison: None Findings: The lungs are adequately expanded. No focal consolidation. No effusion or pneumothorax. Possible mild ectasia of the thoracic aorta. No acute osseous abnormality No free air under the diaphragm. Impression: No free air under the diaphragm. Possible mild ectasia of the thoracic aorta. This document has been electronically signed by: Jatin Santacruz MD on 11/15/2024 07:53:04
--- NOTE | ~2024-11-15 | CT_ITS ---
CLINICAL HISTORY: left sided pain ? stone Exam: CT abdomen and pelvis without IV contrast Comparison: CR - XR CHEST 2V - 11/15/24 07:03 EDT Findings: The lack of intravenous contrast hampers the evaluation of solid organs and the ability to detect and characterize soft tissue abnormalities. Mildly lobulated solid pulmonary nodule 9 mm right middle lobe on series 8, image 8. Bilateral lower lobe subpleural parenchymal scar or discoid atelectasis. Small layering fluid in the distal esophagus. 4 mm calculus in the left ureterovesical junction, mild upstream hydroureter, no hydronephrosis. Liver, gallbladder, spleen, pancreas, adrenal glands, right kidney and ureter, bladder are unremarkable. Left renal cortical cyst 5.1 cm upper pole posterior medially. Right renal subcentimeter too small to characterize cortical hypodensity lateral interpolar region. Prostatomegaly. A few diverticula of the distal colon, no acute diverticulitis. Otherwise unremarkable GI tract. Mild aortoiliac artery atherosclerotic calcification. No lymphadenopathy. No ascites or pneumoperitoneum. Mild degenerative changes of the lumbar spine. Subcentimeter bone island of right iliac bone. Impression: 1. 4 mm obstructing calculus of the left UVJ, mild hydroureter, no hydronephrosis. 2. Right middle lobe 8 mm pulmonary nodule, recommend comparison with previous exam if available, otherwise recommend follow-up CT chest in 3-12 months depending on clinical risk. 3. Suggestion of gastroesophageal reflux. 4. Additional ancillary findings. This document has been electronically signed by: Nakita Gonzalez MD on 11/15/2024 10:17:32
[2024-11-15 05:58] VITALS: BP 164/93; PULSE 80; O2SAT 100
[2024-11-15 06:01] VITALS: BP 169/94; PULSE 78; RESP 22; TEMP 36.4; O2SAT 100; BMI 25.3
[2024-11-15 06:21] LABS: MANUAL DIFF FLAG NO
--- NOTE | 2024-11-15 06:22 | PC.NURSE ---
MAREN Werner fire from home for UL abdominal pain since last night became unbearable this morning. 100mcg Fentanyl IV # 20 L-forearm by EMS. No hx of abdominal surgeries. Last BM was yesterday. Pain is a pressure to left side. Some swelling to L-side. Pt denies any recent injuries or heavy lifting, denies any nausea or vomiting, Pt is guarding and shaking in pain, abdomen soft.
[2024-11-15 06:34] LABS: Alanine Aminotransferase 19 U/L (0-40); Albumin Level 4.5 g/dL (3.5-5.0); Alkaline Phosphatase 73 U/L (39-117); Anion Gap 13 (12-20); Aspartate Amino Transferase 22 U/L (5-37); Blood Urea Nitrogen 20 mg/dL (9-16); Calcium 8.9 mg/dL (8.4-10.2); Carbon Dioxide 21 mmol/L (22-29); Chloride 110 mmol/L (96-108); Creatinine Clr Calc Pharmacy 73.5; Estimated Glomerular Filt Rate 58; Lipase 18 U/L (8-78); Potassium 3.9 mmol/L (3.3-5.1); Sodium 140 mmol/L (135-145); Total Protein 7.0 g/dL (6.5-8.0)
--- NOTE | 2024-11-15 06:46 | PC.NURSE ---
MD made aware of pt discomfort/pain and abdominal asymmetry. Verbal order for CXR to r/o free air in diaphragm. order put in STAT. Pt has call crandall, at bedside.
[2024-11-15 06:59] LABS: Hematocrit 40.9 % (42.0-52.0); Hemoglobin 14.4 g/dl (14.0-18.0); Imm Gran Abs Auto 0.02 X10*3/uL (0.00-0.03); Imm Gran Pct Auto 0.3 % (0.0-0.4); Lymphocytes Absolute Auto 2.3 X10*3/uL (1.2-4.9); Mean Corpuscular HGB Conc 35.2 g/dl (31.0-36.0); Mean Corpuscular Hemoglobin 28.0 pg (27.0-33.0); Mean Corpuscular Volume 79.6 fL (80.0-98.0); NRBC Abs Auto 0.000 X10*3/uL (0.0-0.012); NRBC Pct Auto 0.0 /100WBC (0.0-0.2); Platelet Count 247 X10*3/uL (160-400); Red Blood Count 5.14 X10*6/uL (4.60-5.80); White Blood Count 6.9 X10*3/uL (4.8-10.8)
--- NOTE | 2024-11-15 07:33 | PC.NURSE ---
Assumed care of this pt. Denies any pain, nausea at this time. Awaiting XR results and ED provider eval. Encouraged to provide urine spec. Primarily Bangladeshi speaking, cloth bleaching range tender to be used during provider eval as requested.
[2024-11-15 07:56] VITALS: BP 111/73; PULSE 65; RESP 16; O2SAT 97
[2024-11-15 08:04] LABS: Appearance Urine Clear; Glucose Urine UA Negative (Negative); PH 7.0 (5.0-9.0); Specific Gravity - Urine 1.015 (1.005-1.025); UMIC TRIGGER UACC YES
--- NOTE | 2024-11-15 08:55 | ED_ITS ---
HPI - Abdominal Pain General Chief Complaint: Abdominal Pain Stated Complaint: ABDOMINAL PAIN Time Seen by Provider: 11/15/24 07:20 History of Present Illness HPI narrative: Patient is a 59-year-old male presented today with having abdominal pain on the left side. It is very sharp. Is constant. Was given 100 mics of fentanyl by EMS with improvement. No history of abdominal surgery in the past. Started at midnight. Patient is from home. No history of abdominal issues in the past. No history of kidney stone. No trauma. No vomiting at this time. MD elicited complaint: abdominal pain Related Data Previous Rx's ?Medication ?Instructions ?Recorded ibuprofen 400 mg tablet 400 mg PO Q6H PRN pain #20 t abs 11/15/24 ondansetron 4 mg disintegrating 4 mg PO TID PRN nausea and 11/15/24 tablet vomiting 5 days #10 tabs oxycodone 5 mg tablet 5 mg PO Q8H PRN pain #7 tabs 11/15/24 tamsulosin 0.4 mg capsule (Flomax) 0.4 mg PO DAILY #7 caps 11/15/24 Allergies Allergy/AdvReac Type Severity Reaction Status Date / Time No Known Allergies Allergy Verified 11/15/24 06:09 Review of Systems Review of Systems Abdominal pain Yes all other systems are reviewed and are negative PMFSH Past Medical History Attestation statement: The following information was validated with the patient. Social History Social History Alcohol intake: never Patient Tobacco Use Status: Never used Tobacco Smoked in Last 30 Days: No Use of substances other than those prescribed or required for medical reasons: No Advance Directives: No Advance Directives Information Provided: No Current occupational status: disabled Current occupation: right hand dominant Physical Exam ED Vital Signs: Vital Signs - 24 hr 11/15/24 06:01 11/15/24 07:56 11/15/24 10:30 Temperature 97.6 F 97.2 F Pulse Rate 78 65 62 Respiratory Rate 22 H 16 23 H Blood Pressure 169/94 H 111/73 123/75 Pulse Oximetry 100 97 99 Oxygen Delivery Method Room Air Room Air Room Air BMI result Body Mass Index 25.3 Appearance: Alert. Oriented X3. No acute distress. Eyes: Pupils equal, round and reactive to light. ENT: Pharynx normal. Neck: Normal inspection. Neck supple. No lymph nodes noted. No crepitus CVS: Normal heart rate and rhythm. Pulses normal. Normal S1 and S2 Respiratory: No respiratory distress. Breath sounds normal. No Wheezing. No rales Abdomen: Soft and nontender. No rigidity. No distention. good BS x4 Skin: Skin warm and dry. Normal skin color. Normal skin turgor. Extremities: No lower extremity edema. Neurovascular intact to all extremities. No Lacerations. No Rash Neuro: Oriented X 3. No motor deficit. No sensory deficit. Moving all extermities. No slurred speech Medical Decision Making Medical Decision Making MDM Narrative: Patient's urine showed large amount of blood. Kidney function was normal. Pain is controlled. No acute distress. CT scan of the abdomen pelvis was done and showed a 4 mm uvj stone on the right side. Discussed with patient and family through a practical nursing teacher. Patient to follow-up on an outpatient basis kidney functions normal no signs of UTI pain is controlled in no distress there is a pulmonary nodule noted this was discussed with patient Differential Diagnosis Differential Diagnoses: The differential diagnosis associated with the presentation includes Kidney stone Admission/Observation Consideration of admission/observation: Escalation of care including admission/observation considered Lab Data [facility] Lab Attestation statement: I reviewed the patient's lab results. 11/15/24 06:16 11/15/24 06:16 Labs: Lab Results 11/15/24 11/15/24 Range/Units 06:16 07:57 WBC 6.9 (4.8-10.8) X10*3/uL RBC 5.14 (4.60-5.80) X10*6/uL Hgb 14.4 (14.0-18.0) g/dl Hct 40.9 L (42.0-52.0) % MCV 79.6 L (80.0-98.0) fL MCH 28.0 (27.0-33.0) pg MCHC 35.2 (31.0-36.0) g/dl RDW 13.1 (11.0-16.0) % Plt Count 247 (160-400) X10*3/uL MPV 8.7 L (9.4-12.4) fL Immature Gran % (Auto) 0.3 (0.0-0.4) % Neut % (Auto) 59.2 (45-73) % Lymph % (Auto) 33.9 (20-40) % [place] % (Auto) 5.6 (2-11) % Eos % (Auto) 0.6 (0-4) % Baso % (Auto) 0.4 (0-2) % Lymph # (Auto) 2.3 (1.2-4.9) X10*3/uL [place] # (Auto) 0.4 (0.1-1.2) X10*3/uL Eos # (Auto) 0.0 (0.0-0.4) X10*3/uL Baso # (Auto) 0.0 (0.0-0.2) X10*3/uL Abs Immat Gran (auto) 0.02 (0.00-0.03) X10*3/uL Absolute Neuts (auto) 4.1 (2.0-8.3) x10*3/uL Absolute Nucleated RBC 0.000 (0.0-0.012) X10*3/uL Nucleated RBC % (auto) 0.0 (0.0-0.2) /100WBC Sodium 140 (135-145) mmol/L Potassium 3.9 (3.3-5.1) mmol/L Chloride 110 H (96-108) mmol/L Carbon Dioxide 21 L (22-29) mmol/L Anion Gap 13 (12-20) BUN 20 H (9-16) mg/dL Creatinine 1.26 (0.5-1.4) mg/dL Estim Creat Clear Calc 73.5 Estimated GFR 58 Random Glucose 128 H (60-115) mg/dL Calcium 8.9 (8.4-10.2) mg/dL Total Bilirubin 0.6 (0.0-1.0) mg/dL Direct Bilirubin 0.2 (0.0-0.5) mg/dL AST 22 (5-37) U/L ALT 19 (0-40) U/L Alkaline Phosphatase 73 (39-117) U/L Total Protein 7.0 (6.5-8.0) g/dL Albumin 4.5 (3.5-5.0) g/dL Lipase 18 (8-78) U/L Urine Color Yellow Urine Appearance Clear Urine pH 7.0 (5.0-9.0) Ur Specific [place] 1.015 (1.005-1.025) Urine Protein Negative (Neg-Trace) mg/dL Urine Glucose (UA) Negative (Negative) mg/dL Urine Ketones Negative (Negative) mg/dL Urine Blood Large (3+) H (Negative) Urine Nitrite Negative (Negative) Ur Leukocyte Esterase Negative (Negative) Urine RBC >20 H (0-2) /HPF Urine WBC 0-5 (0-5) /HPF Ur Squamous Epith Cells 0-2 (0-2) /HPF Urine Bacteria None Seen (None Seen) Hyaline Casts 0-2 (0-2) /LPF Independent Interpretation I performed an independent interpretation of an: CT Scan (Positive kidney stone on the right side) Radiology Impression Discussion of test interpretation with radiology: I have reviewed the radiologist's reading. Prescription Management I considered prescription management with: Pain Medication Medications Administered Discontinued Medications Generic Name Dose Route Start Last Admin Trade Name Freq PRN Reason Stop Dose Admin Sodium Chloride 1,000 mls @ 999 mls/hr 11/15/24 09:00 11/15/24 10:28 Ns IV 11/15/24 10:00 Infused .Q1H1M CINDY Infusion Ketorolac Tromethamine 15 mg 11/15/24 08:54 11/15/24 09:22 Ketorolac Tromethamine 15 Mg/Ml Vial IVPUSH 11/15/24 08:55 Not Given ONCE ONE Discharge Plan Discharge Clinical Impression: Renal colic Patient Disposition: Home, Self-Care Instructions: Renal Colic (ED) Additional Instructions: A lung nodule was noted in your right lung. A copy of the CT scan report was given to you. Please follow-up closely. Repeat CAT scan advised in 6 months. Prescriptions: New tamsulosin [Flomax] 0.4 mg capsule 0.4 mg PO DAILY Qty: 7 0RF ibuprofen 400 mg tablet 400 mg PO Q6H PRN (Reason: pain) Qty: 20 0RF ondansetron 4 mg tablet,disintegrating 4 mg PO TID PRN (Reason: nausea and vomiting) 5 Days Qty: 10 0RF oxycodone 5 mg tablet 5 mg PO Q8H PRN (Reason: pain) Qty: 7 0RF Rx Instructions: Partial Fill upon patient request. Referrals: Yumiko Oneal MD [Physician, Urology] - 3 days Print Language: Other
[2024-11-15 10:30] VITALS: BP 123/75; PULSE 62; RESP 23; TEMP 36.2; O2SAT 99
[2024-11-15 11:30] VITALS: BP 123/75; PULSE 62; RESP 23; TEMP 36.2; O2SAT 99
== END 2024-11-15 11:30 | disposition home or self-care (01) ==
PROVIDERS: Emergency Provider Emergency Medicine Emergency Medical Services; PCP Internal Medicine
DX: N20.0 Calculus of kidney (principal); R10.2 Pelvic and perineal pain; R11.0 Nausea; Z79.899 Other long term (current) drug therapy
CPT/HCPCS: 36415; 71046; 74176; 80053; 81001; 82248; 83690; 85025; 96361; 96374; 99284

== ENCOUNTER → 2024-11-15 06:03 | Outpatient (BNV) | payer MEDICARE, MEDICAID, SELFPAY | PROVIDERS: Emergency Provider Emergency Medicine Emergency Medical Services; PCP Internal Medicine; Visit Provider Radiology Vascular & Interventional Radiology | DX: N20.0 Calculus of kidney (principal); R91.1 Solitary pulmonary nodule; R10.9 Unspecified abdominal pain | CPT/HCPCS: 71046 ==

== ENCOUNTER 2024-12-02 07:49 | Outpatient (AMB) | payer MEDICARE, MEDICAID, SELFPAY ==
--- OUTSIDE RECORDS SUMMARY | 2024-12-02 07:52 | XMS_ITS | Clinical Summary ---
Author Organization [facility] Address [address] [place] [address] Care Team Providers Care Medical Unit Secretary Name Role Phone Sabra Payton PA-C Primary Care Provider [phone] Allergies No known active allergies Medications Medication [...] 81 04/26/2022 9:02 AM EST Temperature 36.5 C (97.7 F) 04/26/2022 9:02 AM EST Respiratory Rate - - Oxygen Saturation 99% [...] (1 of 2) 2013 Influenza Vaccine (#1) 2025 RSV Adult > 60+ Yrs or Pregn [...] age to complete this topic Care Teams Medical Unit Secretary Relationship Specialty Start Date End Date Sabra Payton PA-C [address] [place] [address] [address] [place] [address] PCP - General Family Medicine 05/25/18
--- NOTE | 2024-12-02 08:05 | MHC.OFFVIS ---
Intake Visit Reasons: renal colic Intake Note: New Patient presents for initial visit for kidney stone Urology Medications: none Blood Thinner: Eliquis Die Maker Stamping Required: No Accompanied by: Unknown Allergies No Known Allergies Allergy (Verified 12/02/24 08:36) Medication List - Last Reconciled 12/02/24 by HARPER Quintanilla apixaban (Eliquis) 5 mg PO BID HPI Comments Details: Jeannette is a pleasant 59-year-old [place]an-speaking male patient of Dr. Hernandez who was accompanied by his sister at today's office visit. He presents to the office today as a new patient for nephrolithiasis. In discussion with the patient today he reports seeking emergency room care earlier this month for left-sided abdominal pain he had been experiencing at which time CT 12/06 noted 4 mm obstructing calculus at the left UVJ, mild hydroureter, no hydronephrosis. He brings with him to the office today his stone. He reports shortly after his emergency room visit he experienced pressure with urination and has since passed his kidney stone. We discussed sending stone for stone analysis. When asked he denies any previous history of nephrolithiasis and or surgical intervention for nephrolithiasis. When asked he denies any bothersome urinary issues. He denies urinary urgency, urinary frequency, incontinence, nocturia, hematuria, dysuria, foul smelling urine, changes to urinary stream, flank pain, fever, and or chills. He is happy with his current voiding parameters. In office urinalysis results reviewed with the patient today. We discussed at length potential causes of nephrolithiasis as well as further interventions and risks and benefits of these interventions. We also discussed right 8 mm lung nodule. He reports he is due to follow-up with his PCP for his annual visit within the next 2 weeks and will discuss this with his primary care. CT report was printed and given to the patient as requested. He otherwise offers no other issues or concerns at this time. [facility] Social History Alcohol intake: never Patient Tobacco Use Status: Never used Tobacco Current occupational status: disabled Current occupation: right hand dominant Review of Systems Const All systems reviewed & are unremarkable except as noted in HPI and below Physical Exam Const General: cooperative, healthy appearing, comfortable, no acute distress, well developed, alert and awake Orientation/consciousness: patient oriented x3 Limitations: language barrier HEENT Head: Yes normal to inspection, Yes normocephalic and Yes atraumatic Ears: hearing grossly normal bilaterally Eyes General: appearance normal, both eyes and all related structures Neck Neck: Yes normal visual inspection and Yes trachea midline Chest Chest palpation & inspection: normal inspection of the chest Resp Effort & Inspection: normal respiratory effort and able to speak in complete sentences Cardio Rate: regular rate GI Inspection: Yes normal to inspection General: Yes no CVA tenderness Back/Spine/Pelvis Back: no CVA tenderness Skin General skin exam: no rashes or lesions noted Neuro General: patient oriented x3 Extrem General: Yes normal to inspection Psych Appearance: grossly normal and well kempt Mental Status: mental status grossly normal Speech and movement: Normal speech and movement present and Clear speech present Affect: normal affect Attitude: cooperative Thought process: Normal thought process present Thought content: Normal thought content present Insight: Fair insight present (Psych) Judgement: Fair judgement present (Psych) Results AMB Urinalysis, Automated UA Leukoctes 0 Michelle/uL Last Edit by Briana Gallagher [facility] on 12/02/24 08:18 UA Nitrite Last Edit by Briana Gallagher [facility] on 12/02/24 08:18 UA Urobilinogen 0.2 mg/dL Last Edit by Briana Gallagher [facility] on 12/02/24 08:18 UA Protein 0 mg/dL Last Edit by Briana Gallagher [facility] on 12/02/24 08:18 UA pH 6.0 Last Edit by Briana Gallagher [facility] on 12/02/24 08:18 UA Blood 0 Ángel/uL Last Edit by Briana Gallagher [facility] on 12/02/24 08:18 UA Specific [place] 1.020 Last Edit by Briana Gallagher [facility] on 12/02/24 08:18 UA Ketone Last Edit by Briana Gallagher [facility] on 12/02/24 08:18 UA Bilirubin 0 mg/dL Last Edit by Briana Gallagher [facility] on 12/02/24 08:18 UA Glucose 0 mg/dL Last Edit by Briana Gallagher [facility] on 12/02/24 08:18 Results Reviewed Results Reviewed: Date of Service: 11/15/24 Procedure(s): CT abdomen pelvis wo IV con Findings: The lack of intravenous contrast hampers the evaluation of solid organs and the ability to detect and characterize soft tissue abnormalities. Mildly lobulated solid pulmonary nodule 9 mm right middle lobe on series 8, image 8. Bilateral lower lobe subpleural parenchymal scar or discoid atelectasis. Small layering fluid in the distal esophagus. 4 mm calculus in the left ureterovesical junction, mild upstream hydroureter, no hydronephrosis. Liver, gallbladder, spleen, pancreas, adrenal glands, right kidney and ureter, bladder are unremarkable. Left renal cortical cyst 5.1 cm upper pole posterior medially. Right renal subcentimeter too small to characterize cortical hypodensity lateral interpolar region. Prostatomegaly. A few diverticula of the distal colon, no acute diverticulitis. Otherwise unremarkable GI tract. Mild aortoiliac artery atherosclerotic calcification. No lymphadenopathy. No ascites or pneumoperitoneum. Mild degenerative changes of the lumbar spine. Subcentimeter bone island of right iliac bone. Impression: 1. 4 mm obstructing calculus of the left UVJ, mild hydroureter, no hydronephrosis. 2. Right middle lobe 8 mm pulmonary nodule, recommend comparison with previous exam if available, otherwise recommend follow-up CT chest in 3-12 months depending on clinical risk. 3. Suggestion of gastroesophageal reflux. 4. Additional ancillary findings. Assessment & Plan Assessment & Plan (1) Nephrolithiasis: Code(s): N20.0 - Calculus of kidney Category: Medical Plan In office urinalysis results with the patient today; as noted above. He currently denies any bothersome urinary issues or concerns. He reports be happy with current voiding parameters. Recent CT results reviewed with the patient and his sister today; as noted above. All questions were answered. Will continue with surveillance monitoring. Will send stone for stone analysis. Will obtain renal ultrasound for further assessment evaluation. Will obtain PSA for further assessment evaluation. Follow-up with PCP as planned. Follow-up in 1-3 months with imaging and lab to be completed prior; or sooner with any issues, concerns, and or questions. Orders: Orders Surgical Today N20.0 - Calculus of kidney AMB Urinalysis Automated Today Z13.9 - Encounter for screening, unspecified US renal BI Today N20.0 - Calculus of kidney Prostate Specific Antigen Today N40.0 - Benign prostatic hyperplasia without lower urinary tract symptoms Patient Instructions: The patient had an opportunity to ask questions regarding the treatment plan. All questions were answered. Physical exam, labs, and imaging were discussed and reviewed in detail. As well as risks, benefits, and discussion of treatment choices. No major barriers to understanding were identified. The patient expressed understanding and agreement with the above treatment plan. The patient was made aware they should contact our office by phone for worsening of their current condition, the appearance of new symptoms, or with any questions or concerns. Compliance is encouraged with any medications and follow up testing that is ordered. It is a privilege to be allowed the opportunity to participate in? your urological care.? Again, if you have any questions or concerns If you have any questions or concerns please do not hesitate to contact me. The office is [phone]. This note is constructed using voice recognition software. While every effort has been made to ensure accuracy tig welder errors may have been included. Yours sincerely, HARPER Quintanilla Coding Level of Care Code New Pt Level 3 (67942) Diagnoses Nephrolithiasis N20.0
== END 2024-12-02 08:41 | disposition home or self-care (01) ==
LOC: HO.HUSH 07:49
PROVIDERS: PCP Internal Medicine; Visit Provider Nurse Practitioner Family
DX: Z13.9 Encounter for screening, unspecified (principal); N20.0 Calculus of kidney
CPT/HCPCS: 99203

== ENCOUNTER 2024-12-02 07:49 | Outpatient (REF) | payer MEDICARE, MEDICAID, SELFPAY | END 2024-12-02 07:50 | disposition home or self-care (01) | LOC: HO.LNP 07:49 | PROVIDERS: PCP Internal Medicine; Visit Provider Nurse Practitioner Family | DX: N20.0 Calculus of kidney (principal); N40.0 Benign prostatic hyperplasia without lower urinary tract symptoms; Z13.89 Encounter for screening for other disorder; Z79.01 Long term (current) use of anticoagulants | CPT/HCPCS: 81003; 82365; 88300; 99202 ==

== ENCOUNTER 2024-12-03 08:07 | Outpatient (REF) | payer MEDICARE, MEDICAID, SELFPAY ==
--- OUTSIDE RECORDS SUMMARY | 2024-12-03 08:13 | XMS_ITS | Clinical Summary ---
Author Organization [facility] Address [address] [place] [address] Care Team Providers Care Moving Picture Producer Name Role Phone Sabra Payton PA-C Primary Care Provider [phone] Allergies No known active allergies Medications Medication [...] age to complete this topic Care Teams Moving Picture Producer Relationship Specialty Start Date End Date Sabra Payton PA-C [address] [place] [address] [address] [place] [address] PCP - General Family Medicine 05/25/18
[2024-12-03 09:48] LABS: MANUAL DIFF FLAG NO
[2024-12-03 09:53] LABS: Hematocrit 38.8 % (42.0-52.0); Hemoglobin 13.0 g/dl (14.0-18.0); Imm Gran Abs Auto 0.01 X10*3/uL (0.00-0.03); Imm Gran Pct Auto 0.2 % (0.0-0.4); Lymphocytes Absolute Auto 1.2 X10*3/uL (1.2-4.9); Mean Corpuscular HGB Conc 33.5 g/dl (31.0-36.0); Mean Corpuscular Hemoglobin 27.7 pg (27.0-33.0); Mean Corpuscular Volume 82.6 fL (80.0-98.0); NRBC Abs Auto 0.000 X10*3/uL (0.0-0.012); NRBC Pct Auto 0.0 /100WBC (0.0-0.2); Platelet Count 224 X10*3/uL (160-400); Red Blood Count 4.70 X10*6/uL (4.60-5.80); White Blood Count 4.6 X10*3/uL (4.8-10.8)
[2024-12-03 10:19] LABS: Alanine Aminotransferase 22 U/L (0-40); Albumin Level 4.1 g/dL (3.5-5.0); Alkaline Phosphatase 67 U/L (39-117); Anion Gap 11 (12-20); Aspartate Amino Transferase 25 U/L (5-37); Blood Urea Nitrogen 17 mg/dL (9-16); Calcium 8.3 mg/dL (8.4-10.2); Carbon Dioxide 25 mmol/L (22-29); Chloride 110 mmol/L (96-108); Cholesterol 154 mg/dL (<200); Estimated Glomerular Filt Rate 55; HDL Cholesterol 49 mg/dL (>40); Potassium 3.8 mmol/L (3.3-5.1); Sodium 142 mmol/L (135-145); Total Protein 6.2 g/dL (6.5-8.0); Triglycerides 55 mg/dL (<150)
[2024-12-03 10:20] LABS: Appearance Urine Clear; Glucose Urine UA Negative (Negative); PH 5.0 (5.0-9.0); Specific Gravity - Urine 1.015 (1.005-1.025)
[2024-12-03 10:37] LABS: Thyroid Stimulating Hormone 0.95 uIU/mL (0.32-4.0)
[2024-12-03 10:42] LABS: Prostate Specific Antigen 2.28 ng/mL (<0.05-4.0)
== END 2024-12-03 08:08 | disposition home or self-care (01) ==
LOC: HO.10HDL 08:07
PROVIDERS: Referring Provider Physician Assistant Medical; Visit Provider Nurse Practitioner Family
DX: Z00.00 Encounter for general adult medical examination without abnormal findings (principal); Z12.5 Encounter for screening for malignant neoplasm of prostate; I12.9 Hypertensive chronic kidney disease with stage 1 through stage 4 chronic kidney disease, or unspecified chronic kidney disease; N18.31 Chronic kidney disease, stage 3a; E78.5 Hyperlipidemia, unspecified; N40.0 Benign prostatic hyperplasia without lower urinary tract symptoms
CPT/HCPCS: 36415; 80053; 80061; 81001; 82043; 82570; 84153; 84443; 85025

== ENCOUNTER 2025-01-15 08:11 | Outpatient (REF) | payer MEDICARE, MEDICAID, SELFPAY ==
--- OUTSIDE RECORDS SUMMARY | 2025-01-15 08:42 | XMS_ITS ---
Author Name [facility] Organization Unknown Care Team Organization Name Specialty Phone Email Start Date End Da te [facility] NULL Primary Care 04/26/2023 01/01/2024 [facility] Marcial Cabrera Primary Care 03/22/2022 01/01/2024
--- OUTSIDE RECORDS SUMMARY | 2025-01-15 08:42 | XMS_ITS | Clinical Summary ---
Author Organization [facility] Address [address] [place] [address] Care Team Providers Care Line Manager Name Role Phone Sabra Payton PA-C Primary Care Provider [phone] Allergies No known active allergies Medications Medication [...] age to complete this topic Care Teams Line Manager Relationship Specialty Start Date End Date Sabra Payton PA-C [address] [place] [address] [address] [place] [address] PCP - General Family Medicine 05/25/18
[2025-01-15 09:38] LABS: MANUAL DIFF FLAG NO
[2025-01-15 09:48] LABS: Hematocrit 40.8 % (42.0-52.0); Hemoglobin 13.9 g/dl (14.0-18.0); Imm Gran Abs Auto 0.02 X10*3/uL (0.00-0.03); Imm Gran Pct Auto 0.4 % (0.0-0.4); Lymphocytes Absolute Auto 1.9 X10*3/uL (1.2-4.9); Mean Corpuscular HGB Conc 34.1 g/dl (31.0-36.0); Mean Corpuscular Hemoglobin 28.0 pg (27.0-33.0); Mean Corpuscular Volume 82.3 fL (80.0-98.0); NRBC Abs Auto 0.000 X10*3/uL (0.0-0.012); NRBC Pct Auto 0.0 /100WBC (0.0-0.2); Platelet Count 206 X10*3/uL (160-400); Red Blood Count 4.96 X10*6/uL (4.60-5.80); White Blood Count 5.5 X10*3/uL (4.8-10.8)
[2025-01-15 10:05] LABS: Alanine Aminotransferase 19 U/L (0-40); Albumin Level 4.2 g/dL (3.5-5.0); Alkaline Phosphatase 70 U/L (39-117); Anion Gap 11 (12-20); Aspartate Amino Transferase 19 U/L (5-37); Blood Urea Nitrogen 23 mg/dL (9-16); Calcium 9.6 mg/dL (8.4-10.2); Carbon Dioxide 28 mmol/L (22-29); Chloride 105 mmol/L (96-108); Estimated Glomerular Filt Rate 52; Iron 88 mcg/dL (45-160); Percent Iron Saturation 34 % (15-50); Potassium 3.9 mmol/L (3.3-5.1); Sodium 140 mmol/L (135-145); Total Iron Binding Capacity 258 mcg/dL (228-428); Total Protein 6.7 g/dL (6.5-8.0); Unsaturated Iron Binding 170 ug/dL
== END 2025-01-15 08:12 | disposition home or self-care (01) ==
LOC: HO.10HDL 08:11
PROVIDERS: Visit Provider Physician Assistant Medical
DX: E78.5 Hyperlipidemia, unspecified (principal); D68.59 Other primary thrombophilia; H34.8120 Central retinal vein occlusion, left eye, with macular edema; I47.10 Supraventricular tachycardia, unspecified; I12.9 Hypertensive chronic kidney disease with stage 1 through stage 4 chronic kidney disease, or unspecified chronic kidney disease; N18.31 Chronic kidney disease, stage 3a
CPT/HCPCS: 36415; 80053; 83540; 85025

== ENCOUNTER 2025-01-20 13:43 | Outpatient (REF) | payer MEDICARE, MEDICAID, SELFPAY ==
--- NOTE | ~2025-01-20 | US_ITS ---
EXAMINATION: US KIDNEY BILATERAL HISTORY: N20.0 - Calculus of kidney TECHNIQUE: Real-time grayscale ultrasound imaging of the kidneys was performed and images were reviewed. COMPARISON: There are no prior studies available for comparison. FINDINGS: Right kidney: The right kidney measures 10.5 x 6.0 x 5.7 cm. Renal parenchymal echotexture and thickness are normal. There are no masses. There is no hydronephrosis or renal calculi. Left Kidney: The left kidney measures 11.8 x 5.1 x 4.9 cm. Renal parenchymal echotexture and thickness are normal. There is a 4.5 x 4.3 x 5.2 cm simple cyst at the upper pole. There is no hydronephrosis or renal calculi. US/US renal BI IMPRESSION: 4.5 x 4.3 x 5.2 cm left ovarian cyst. Otherwise unremarkable renal ultrasound. Electronically signed by: Mahesh Lugo MD 01/20/2025 02:32 PM EDT
--- OUTSIDE RECORDS SUMMARY | 2025-01-20 15:58 | XMS_ITS | Clinical Summary ---
Author Organization [facility] Address [address] [place] [address] Care Team Providers Care Upholstery Sewer Name Role Phone Sabra Payton PA-C Primary Care Provider [phone] Allergies No known active allergies Medications Medication [...] age to complete this topic Care Teams Upholstery Sewer Relationship Specialty Start Date End Date Sabra Payton PA-C [address] [place] [address] [address] [place] [address] PCP - General Family Medicine 05/25/18
== END 2025-01-20 13:44 | disposition home or self-care (01) ==
LOC: HO.HMGCX 13:43
PROVIDERS: PCP Internal Medicine; Visit Provider Nurse Practitioner Family
DX: N20.0 Calculus of kidney (principal)
CPT/HCPCS: 76775

== ENCOUNTER → 2025-01-20 13:45 | Outpatient (BNV) | payer MEDICARE, MEDICAID, SELFPAY | PROVIDERS: PCP Internal Medicine; Visit Provider Radiology Diagnostic Radiology | DX: N20.0 Calculus of kidney (principal); N83.202 Unspecified ovarian cyst, left side | CPT/HCPCS: 76775 ==

== ENCOUNTER 2025-01-23 11:41 | Outpatient (AMB) | payer MEDICARE, MEDICAID, SELFPAY ==
--- NOTE | 2025-01-23 11:42 | A.OFFVIS_ITS ---
Intake Visit Reasons: follow up/US/PSA Intake Note: Patient is present for US/PSA Urology Medication:NONE Antibiotic Allergy:NONE Blood Thinner:APIXABAN Chairman Of The Board Required: No Chairman Of The Board Services: Chairman Of The Board Present Chairman Of The Board Name: Edwardo Kirby Allergies No Known Allergies Allergy (Verified 01/23/25 12:14) Medication List - Last Reconciled 01/23/25 by SHAHRAM Quintanilla-KAVEH apixaban (Eliquis) 5 mg PO BID HPI Comments Details: Jeannette is a pleasant 60-year-old Micronesian-speaking male patient of Dr. Hernandez. He is being followed up in today via telehealth for his nephrolithiasis. In discussion with the patient today reports to be doing and feeling well. Recent renal imaging results with the patient today 02/06 bilateral kidneys are normal in echotexture and thickness. Bilateral kidneys with no hydronephrosis or renal calculi. Left kidney with simple 5.2 cm simple cyst per radiology report. When asked he denies any bothersome urinary issues or concerns. He reports he has attempting to drink plenty of water daily. Recent PSA results and stone analysis results reviewed with the patient today as noted and trended below: PSA 12/06 2.3 12/06 95% calcium oxalate We discussed at length the importance of adequate hydration relation to nephrolithiasis as well as overall health and well-being. When asked he denies any previous history of nephrolithiasis and or surgical intervention for nephrolithiasis. When asked he denies any bothersome urinary issues. He denies urinary urgency, urinary frequency, incontinence, nocturia, hematuria, dysuria, foul smelling urine, changes to urinary stream, flank pain, fever, and or chill s. He is happy with his current voiding parameters. He otherwise offers no other issues or concerns at this time. ON LICENSE OF [facility] Social History Alcohol intake: never Patient Tobacco Use Status: Never used Tobacco Current occupational status: disabled Current occupation: right hand dominant Review of Systems Const All systems reviewed & are unremarkable except as noted in HPI and below Physical Exam Const General: cooperative Orientation/consciousness: patient oriented x3 Limitations: language barrier Resp Effort & Inspection: able to speak in complete sentences Neuro General: patient oriented x3 Psych Affect: normal affect Attitude: cooperative Thought process: Normal thought process present Thought content: Normal thought content present Insight: Fair insight present (Psych) Judgement: Fair judgement present (Psych) Telehealth Telehealth Telehealth Platform: Telephone Location of provider rendering services: practice address Location of patient: address on file Patient Identification confirmed using: Name, : Yes Telehealth method: voice only Patient verbally consented to treatment: Yes Patient verbally consented to billing insurance company: Yes Patient informed of any privacy concerns related to visit: Yes Minutes spent on Phone/Video with Pt.: 20 Results Reviewed Results Reviewed: Date of Service: 01/20/25 Procedure(s): US renal BI FINDINGS: Right kidney: The right kidney measures 10.5 x 6.0 x 5.7 cm. Renal parenchymal echotexture and thickness are normal. There are no masses. There is no hydronephrosis or renal calculi. Left Kidney: The left kidney measures 11.8 x 5.1 x 4.9 cm. Renal parenchymal echotexture and thickness are normal. There is a 4.5 x 4.3 x 5.2 cm simple cyst at the upper pole. There is no hydronephrosis or renal calculi. IMPRESSION: 4.5 x 4.3 x 5.2 cm left ovarian cyst. Otherwise unremarkable renal ultrasound. Assessment & Plan Assessment & Plan (1) Nephrolithiasis: Code(s): N20.0 - Calculus of kidney Category: Medical Plan Recent renal imaging results with the patient today; as noted above. Recent PSA results with the patient today; as noted above. Recent stone analysis results reviewed with the patient today; as noted above. All questions were answered. He currently denies any bothersome urinary issues or concerns. He reports be happy with current voiding parameters. We discussed the importance of adequate hydration relation to nephrolithiasis as well as overall health and well-being. We discussed adding 1 oz of lemon juice to water daily. Will continue with surveillance monitoring. Will obtain renal ultrasound in 6 months. Follow-up in 6 months with imaging to be completed prior; or sooner with any issues, concerns, and or questions. Orders: Orders US renal BI 6 Months N20.0 - Calculus of kidney Patient Instructions: The patient had an opportunity to ask questions regarding the treatment plan. All questions were answered. Physical exam, labs, and imaging were discussed and reviewed in detail. As well as risks, benefits, and discussion of treatment choices. No major barriers to understanding were identified. The patient expressed understanding and agreement with the above treatment plan. The patient was made aware they should contact our office by phone for worsening of their current condition, the appearance of new symptoms, or with any questions or concerns. Compliance is encouraged with any medications and follow up testing that is ordered. It is a privilege to be allowed the opportunity to participate in? your urological care.? Again, if you have any questions or concerns If you have any questions or concerns please do not hesitate to contact me. The office is [phone]. This note is constructed using voice recognition software. While every effort has been made to ensure accuracy farmworker livestock errors may have been included. Yours sincerely, HARPER Quintanilla Coding Level of Care Code Tele Est Pt Level 3 (91266) Diagnoses Nephrolithiasis N20.0
--- OUTSIDE RECORDS SUMMARY | 2025-01-23 16:03 | XMS_ITS | Clinical Summary ---
Author Organization [facility] Address [address] [place] [address] Care Team Providers Care Glass Sander Belt Name Role Phone Sabra Payton PA-C Primary Care Provider [phone] Allergies No known active allergies Medications Medication [...] age to complete this topic Care Teams Glass Sander Belt Relationship Specialty Start Date End Date Sabra Payton PA-C [address] [place] [address] [address] [place] [address] PCP - General Family Medicine 05/25/18
== END 2025-01-23 13:21 | disposition home or self-care (01) ==
LOC: HO.HUSH 11:41
PROVIDERS: PCP Internal Medicine; Visit Provider Nurse Practitioner Family
DX: N20.0 Calculus of kidney (principal)
CPT/HCPCS: 99213

== ENCOUNTER 2025-03-19 16:27 | Outpatient (REF) | payer MEDICARE, MEDICAID, SELFPAY ==
--- NOTE | ~2025-03-19 | CT_ITS ---
EXAMINATION: CT CHEST WITHOUT CONTRAST CLINICAL INFORMATION: Solitary nodule COMPARISON: Chest x-ray November 25, 2024 TECHNIQUE: Multidetector volumetric CT imaging of the chest was done. Axial MIP volume rendering provided. Sagittal and coronal reformatted images were obtained. This CT examination was performed using dose optimization techniques as appropriate, variously including the following: *Automated exposure control *Adjustment of mA and/or kV according to patient size (this includes techniques or standardized protocols for targeted exams where dose is matched to indication/reason for exam; i.e. extremities or head) *Use of iterative reconstruction technique FINDINGS: LUNGS: A 6 mm solid nodular density is present in the posterior right apex. 4 mm triangular-shaped nodular density contacting anterolateral aspect of the minor fissure projecting into the middle lobe is consistent with an intrapulmonary lymph node. There is a solid lobulated nodule in the inferior aspect of the right middle lobe measuring 7 x 9 mm. Linear and wedge-shaped density in the lateral basal left lower lobe is most consistent with scarring and/or atelectasis. MEDIASTINUM: The mediastinum is normal. CORONARY ARTERY CALCIFICATION: Present PLEURA: There is no pleural effusion. No pleural mass or thickening. AXILLA: No lymphadenopathy. UPPER ABDOMEN: Simple exophytic renal cyst is noted on the left. OSSEOUS STRUCTURES: Unremarkable. CT/CT chest wo IV con IMPRESSION: There is a 7 x 9 mm solid pulmonary nodule in the right middle lobe. Follow up CT in 6-[address] again at 18-24 months is indicated per Fleischner Society recommendations, unless the patient falls into a high risk category, in which case 18-24 months follow-up CT chest without contrast is recommended. High risk patients includes those with a history of smoking, first-degree relative with lung cancer, or exposure to uranium, radon, or asbestos. Nodular density in the posterior right apex could represent scarring versus pulmonary nodule. Fleischner guidelines were followed. Electronically signed by: Blair Dale MD 03/19/2025 05:03 PM IVY
--- OUTSIDE RECORDS SUMMARY | 2025-03-19 19:02 | XMS_ITS | Clinical Summary ---
Author Organization [facility] Address [address] [place] [address] Care Team Providers Care Light Cleaner Name Role Phone Sabra Payton PA-C Primary Care Provider [phone] Allergies No known active allergies Medications Medication [...] age to complete this topic Care Teams Light Cleaner Relationship Specialty Start Date End Date Sabra Payton PA-C [address] [place] [address] [address] [place] [address] PCP - General Family Medicine 05/25/18
== END 2025-03-19 16:28 | disposition home or self-care (01) ==
LOC: HO.CT 16:27
PROVIDERS: PCP Internal Medicine; Visit Provider Physician Assistant Medical
DX: R91.1 Solitary pulmonary nodule (principal)
CPT/HCPCS: 71250

== ENCOUNTER → 2025-03-19 16:38 | Outpatient (BNV) | payer MEDICARE, MEDICAID, SELFPAY | PROVIDERS: PCP Internal Medicine; Visit Provider Radiology Diagnostic Radiology | DX: R91.1 Solitary pulmonary nodule (principal) | CPT/HCPCS: 71250 ==